=== PATIENT | female | born 1995 | race Two or more races ===

== ENCOUNTER 2021-03-11 12:20 | Emergency (ER) | payer OTHER ==
[~2021-03-11] VITALS: Ht 157.5 cm; Wt 68.9 kg
--- NOTE | 2021-03-11 12:32 | NUR ---
PT C/O SORETHROAT/BODY ACHE AND COUGH X 3 DAYS,CHEST HURTS WHEN COUGHING. TOLERATING R/A WELL WITH NO SOB AT 99%. TACHY AT 155. CONNECTED PT TO POX AND MONITOR.
[2021-03-11] MEDS ORDERED: ACETAMINOPHEN ES 500 MG TABLET ONE (12:55)
[2021-03-11] MEDS ORDERED: ACETAMINOPHEN ES 500 MG TABLET PO ONE (13:00)
--- NOTE | 2021-03-11 13:12 | NUR ---
ALEXANDRO GUTIERREZ SWAB AND URINE COLLECTED AND SENT TO LAB
--- NOTE | 2021-03-11 13:59 | NUR ---
PT COVID ANTIGEN (+); CONTACT ISO DROPLET PROTOCOL IN PLACE. CHARGE NURSE RN AWARE
[2021-03-11 14:16] LABS: BASOPHILS # (AUTO) 0.1 K/uL (0.0-0.2); BASOPHILS % (AUTO) 0.6 % (0.0-2.0); EOSINOPHILS % (AUTO) 0.1 % (0.0-6.0); HEMATOCRIT 41 % (33-45); HEMOGLOBIN 13.5 g/dL (11.5-14.8); LYMPHOCYTES # (AUTO) 1.3 K/uL (0.8-4.8); LYMPHOCYTES % (AUTO) 11.8 % (20.0-44.0); MEAN CORPUSCULAR HGB CONC 33 g/dl (31.0-36.0); MEAN CORPUSCULAR VOLUME 86 fL (82-100); MONOCYTES # (AUTO) 1.2 K/uL (0.1-1.30); MONOCYTES % (AUTO) 11.4 % (2.0-12.0); NEUTROPHILS # (AUTO) 8.1 K/uL (1.8-8.9); NEUTROPHILS % (AUTO) 76.1 % (43.0-81.0); PLATELET COUNT (AUTO) 375 K/uL (150-450); RED BLOOD CELL COUNT(AUTO) 4.72 MIL/uL (4.0-5.2); WHITE BLOOD COUNT (AUTO) 10.6 K/uL (4.3-11.0)
[2021-03-11 14:33] LABS: CALCIUM, SERUM 8.3 mg/dL (8.5-10.1); CARBON DIOXIDE 23 mmol/L (21-32); CHLORIDE 102 mmol/L (98-107); CREATININE 0.8 mg/dL (0.6-1.3); GLUCOSE 85 mg/dL (74-106); POTASSIUM 3.5 mmol/L (3.5-5.1); SODIUM SERUM 138 mmol/L (136-145); UREA NITROGEN, BLOOD 8 mg/dL (7-18)
[2021-03-11] MEDS ORDERED: IV NS 0.9% 1,000 ML IV ONE (16:00)
[2021-03-11] MEDS ORDERED: IV NS 0.9% 1,000 ML BAG IV ONE (18:00)
[2021-03-11 19:24] VITALS: BP 138/72
--- NOTE | 2021-03-11 19:24 | NUR ---
Alert and oriented x4. IV removed. Catheter intact and site benign. Pressure and 4x4 applied to site. No bleeding noted.Patient discharged to home in stable condition. Written and verbal after care instructions given. Patient verbalizes understanding of instruction.
== END 2021-03-11 19:25 | disposition home or self-care (01) ==
LOC: ER 12:22
DX: U07.1 COVID-19 (principal); R00.0 Tachycardia, unspecified
CPT/HCPCS: 36415; 71045; 80048; 84484; 84702; 84703; 85025; 85378; 87426; 93005; 96360; 96361; 99285; C9803; J7030 ×2